=== PATIENT | female | born 1950 | race Caucasian/White ===

== ENCOUNTER → 2021-07-08 08:29 | Outpatient (BNVA) | payer MEDICARE, BC, SELFPAY | PROVIDERS: Referring Provider Family Medicine; Visit Provider Internal Medicine | DX: E03.8 Other specified hypothyroidism (principal); F41.9 Anxiety disorder, unspecified; I49.3 Ventricular premature depolarization; Z87.891 Personal history of nicotine dependence | CPT/HCPCS: 99204 ==

== ENCOUNTER → 2021-09-12 13:50 | Outpatient (BNVA) | payer MEDICARE, BC, SELFPAY | PROVIDERS: PCP Internal Medicine; Visit Provider Internal Medicine | DX: E03.8 Other specified hypothyroidism (principal); R94.6 Abnormal results of thyroid function studies; F41.9 Anxiety disorder, unspecified; I49.3 Ventricular premature depolarization; Z87.891 Personal history of nicotine dependence | CPT/HCPCS: 99215 ==

== ENCOUNTER → 2022-01-14 11:03 | Outpatient (BNVA) | payer MEDICARE, BC, SELFPAY | PROVIDERS: PCP Internal Medicine; Visit Provider Internal Medicine | DX: E03.8 Other specified hypothyroidism (principal); F41.9 Anxiety disorder, unspecified; I49.3 Ventricular premature depolarization; R94.6 Abnormal results of thyroid function studies | CPT/HCPCS: 99214 ==